=== PATIENT | female | born 1950 | race Caucasian/White ===

== ENCOUNTER 2018-01-07 18:56 | Emergency (ER) | payer MEDICARE, BC ==
--- NOTE | 2018-01-07 19:39 | ED Physician Documentation ---
History of Present Illness - Stated complaint Stated Complaint: POSS HIGH BP - Chief complaint Chief Complaint: Cardiac - History obtained from History obtained from: Patient, Friend - History of Present Illness Timing: Today Pain level max: 0 Pain level now: 0 Improved by: lisinopril Worsened by: nothing - Additonal information Additional information: Patient is a 67-year-old female who presents to the emergency department for high blood pressure at home today. She states that her normal blood pressure is between 150 and 160 systolic. She is on lisinopril 10 mg by mouth twice daily. Has an appointment with her doctor on Tuesday. She denies any other symptoms at this time. No headache, no vision changes, no chest pain. No palpitations. Review of Systems Ten Systems: 10 systems reviewed and negative Constitutional: denies: Fever, Chills Eyes: denies: Loss of vision, Decreased vision Ears: denies: Ear pain Nose: denies: Rhinorrhea / runny nose, Congestion Throat: denies: Sore throat Cardiac: denies: Chest pain / pressure, Palpitations Respiratory: denies: Dyspnea, Cough, Wheezing GI: denies: Abdominal Pain, Nausea, Vomiting, Diarrhea Skin: denies: Rash Musculoskeletal: denies: Neck pain, Back pain Neurologic: denies: Headache PD PAST MEDICAL HISTORY - Past Medical History Past Medical History: Yes Cardiovascular: Hypertension - Past Surgical History Past Surgical History: No - Present Medications Home Medications: Ambulatory Orders Medication Instructions Recorded Confirmed Lisinopril 10 mg PO BID 01/07/18 01/07/18 Thyroid,Pork [[place] Thyroid] 2 tab PO DAILY 01/07/18 01/07/18 - Allergies Allergies/Adverse Reactions: Allergies Allergy/AdvReac Type Severity Reaction Status Date / Time No Known Drug Allergies Allergy Verified 06/06/13 09:04 - Living Situation Living Arrangement: reports: At home - Social History Does the pt smoke?: No Smoking Status: Never smoker Does the pt drink ETOH?: No Does the pt have substance abuse?: No - Family History Family history: reports: Non contributory - POLST Patient has POLST: No PD ED PE NORMAL - Vitals Vital signs reviewed: Yes - General General: Alert and oriented X 3, No acute distress, Well developed/nourished - HEENT HEENT: PERRL, EOMI, Moist mucous membranes - Neck Neck: Supple, no meningeal sign - Cardiac Cardiac: RRR, Strong equal pulses - Respiratory Respiratory: No respiratory distress, Clear bilaterally - Abdomen Abdomen: Soft, Non tender, Non distended - Derm Derm: Warm and dry - Extremities Extremities: No deformity - Neuro Neuro: Alert and oriented X 3, management lead 2-12 intact, No motor deficit, No sensory deficit Eye Opening: Spontaneous Motor: Obeys Commands Verbal: Oriented GCS Score: 15 - Psych Psych: Normal mood, Normal affect Results - Vitals Vitals: Vital Signs - 24 hr 01/07/18 01/07/18 01/07/18 19:05 19:35 20:49 Temperature 36.4 C L Heart Rate 76 70 76 Respiratory 18 16 16 Rate Blood Pressure 235/108 H 230/106 H 195/97 H O2 Saturation 98 96 96 01/07/18 21:01 Temperature Heart Rate 73 Respiratory 18 Rate Blood Pressure 196/108 H O2 Saturation 96 Oxygen O2 Source Room air - EKG (time done) 1914 Rate: Rate (enter#) (74) Rhythm: NSR Coggon: Normal Intervals: Normal MT QRS: Normal, LVH Ischemia: Non specific changes - Labs Labs: Laboratory Tests 01/07/18 01/07/18 01/07/18 20:00 20:00 20:00 WBC 7.1 RBC 5.03 Hgb 14.4 Hct 42.5 MCV 84.5 MCH 28.6 MCHC 33.9 RDW 13.7 Plt Count 272 MPV 7.5 L Neut # (Auto) 5.1 Lymph # (Auto) 1.4 L [place] # (Auto) 0.4 Eos # (Auto) 0.1 Baso # (Auto) 0.1 Absolute Nucleated RBC 0.00 Nucleated RBC % 0.1 Sodium 138 Potassium 3.9 Chloride 103 Carbon Dioxide 27 Anion Gap 8.0 BUN 17 Creatinine 0.8 Estimated GFR (MDRD) 71 L Glucose 127 H Calcium 9.5 Total Bilirubin 0.5 AST 27 ALT 29 Alkaline Phosphatase 70 Troponin I < 0.04 Total Protein 8.2 Albumin 4.4 Globulin 3.8 Albumin/Globulin Ratio 1.2 Lipase 34 TSH Free T4 01/07/18 20:00 WBC RBC Hgb Hct MCV MCH MCHC RDW Plt Count MPV Neut # (Auto) Lymph # (Auto) [place] # (Auto) Eos # (Auto) Baso # (Auto) Absolute Nucleated RBC Nucleated RBC % Sodium Potassium Chloride Carbon Dioxide Anion Gap BUN Creatinine Estimated GFR (MDRD) Glucose Calcium Total Bilirubin AST ALT Alkaline Phosphatase Troponin I Total Protein Albumin Globulin Albumin/Globulin Ratio Lipase TSH 2.39 Free T4 0.64 PD MEDICAL DECISION MAKING - ED course Complexity details: reviewed results, re-evaluated patient, considered differential, d/w patient ED course: Patient is a 67-year-old female with a long-standing history of hypertension. Asymptomatic here. No acute findings on EKG, laboratory testing. Blood pressure decreased on its own in the emergency department. We will have her follow-up with her doctor for adjustment of her medications. Patient counseled regarding signs and symptoms for which I believe and urgent re-evaluation would be necessary. Patient with good understanding of and agreement to plan and is comfortable going home at this time This document was made in part using voice recognition software. While efforts are made to proofread this document, sound alike and grammatical errors may occur. - Sepsis Event Vital Signs: Vital Signs - 24 hr 01/07/18 01/07/18 01/07/18 19:05 19:35 20:49 Temperature 36.4 C L Heart Rate 76 70 76 Respiratory 18 16 16 Rate Blood Pressure 235/108 H 230/106 H 195/97 H O2 Saturation 98 96 96 01/07/18 21:01 Temperature Heart Rate 73 Respiratory 18 Rate Blood Pressure 196/108 H O2 Saturation 96 Oxygen O2 Source Room air Departure - Departure Disposition: 01 Home, Self Care Clinical Impression: Hypertension Qualifiers: Hypertension type: unspecified Qualified Code(s): I10 - Essential (primary) hypertension Condition: Good Instructions: ED HTN Established Follow-Up: Hank Vargas ND [Primary Care Provider] - Within 1 week Comments: Continue your medications at home. Return if you worsen. Keep a log of your blood pressure for your doctor to review and adjust your medication. Discharge Date/Time: 01/07/18 21:03
[2018-01-07 20:09] LABS: BASOPHILS # (AUTO) 0.1 10^3/uL (0.0-0.1); BASOPHILS % (AUTO) 0.8 %; EOSINOPHILS # (AUTO) 0.1 10^3/uL (0.0-0.7); EOSINOPHILS % (AUTO) 1.3 %; HGB - HEMOGLOBIN 14.4 g/dL (12.0-16.0); LYMPHOCYTES # (AUTO) 1.4 10^3/uL (1.5-3.5); LYMPHOCYTES % (AUTO) 19.5 %; MEAN CORPUSCULAR HEMOGLOBIN 28.6 pg (27.0-31.0); MEAN CORPUSCULAR HGB CONC 33.9 g/dL (32.0-36.0); MEAN CORPUSCULAR VOLUME 84.5 fL (81.0-99.0); MEAN PLATELET VOLUME 7.5 fL (7.9-10.8); MONOCYTES # (AUTO) 0.4 10^3/uL (0.0-1.0); MONOCYTES % (AUTO) 6.1 %; NEUTROPHILS # (AUTO) 5.1 10^3/uL (1.5-6.6); NEUTROPHILS % (AUTO) 72.3 %; PLT - PLATELET COUNT 272 10^3/uL (130-450); RED BLOOD COUNT 5.03 10^6/uL (4.20-5.40); RED CELL DISTRIBUTION WIDTH 13.7 % (12.0-15.0); WHITE BLOOD COUNT 7.1 x10^3/uL (4.8-10.8)
[2018-01-07 20:21] LABS: ALBUMIN 4.4 g/dL (3.2-5.5); ALBUMIN/GLOBULIN RATIO 1.2 (1.0-2.2); BILIRUBIN,TOTAL 0.5 mg/dL (0.2-1.0); CALCIUM 9.5 mg/dL (8.5-10.3); CREATININE 0.8 mg/dL (0.4-1.0); TOTAL PROTEIN 8.2 g/dL (6.7-8.2)
[2018-01-07 20:37] LABS: THYROID STIMULATING HORMONE 2.39 uIU/mL (0.34-5.60)
[2018-01-07 20:39] LABS: FREE T4 (FREE THYROXINE) 0.64 ng/dL (0.58-1.64)
[2018-01-07 21:02] VITALS: BP 196/108
== END 2018-01-07 21:03 | disposition home or self-care (01) ==
LOC: ED 18:56
DX: I10 Essential (primary) hypertension (principal)
CPT/HCPCS: 36415; 80053; 81001; 81003; 83690; 84439; 84443; 84484; 85025; 87086; 93005; 99283